=== PATIENT | female | born 1995 | race Caucasian/White ===

== ENCOUNTER 2025-02-27 09:24 | Emergency (ER) | payer SELFPAY ==
[2025-02-27] MEDS ORDERED: Iopamidol 370 76% 100 ML VIAL ONE (10:06)
[2025-02-27 10:52] LABS: #Basophils 0.03 10x3/uL (0.0-0.2); #Eosinophils 0.08 10x3/uL (0.0-0.7); #Monocytes 0.22 10x3/uL (0.11-0.59); #Neutrophils 3.15 10x3/uL (1.40-6.50); %Basophils 0.6 % (0.0-1.0); %Eosinophils 1.7 % (0.0-10.0); %Lymphocytes 25.4 % (21.0-51.0); %Monocytes 4.7 % (0.0-10.0); %Neutrophils 67.4 % (42.0-75.0); Hematocrit 36.9 % (36.0-47.0); Hemoglobin 12.3 g/dL (12.0-16.0); Mean Corpuscular Hemoglobin 28.8 pg (27.0-31.0); Mean Corpuscular Volume 86.4 fL (78.0-98.0); Platelet Count 214 10x3/uL (130-400); Red Blood Cell (RBC) Count 4.27 mill/uL (4.20-5.40); White Blood Cell (WBC) Count 4.68 10x3/uL (4.8-10.8)
[2025-02-27] MEDS ORDERED: Acetaminophen 500 MG TAB ONE (11:00)
[2025-02-27 11:13] LABS: ALT (SGPT) 10 U/L (Less than 34); AST (SGOT) 31 U/L (11-34); Albumin 4.4 g/dL (3.1-4.5); Alkaline Phosphatase 72 U/L (40-110); Anion Gap 15 mmol/L (10-20); BUN (Urea Nitrogen) 10 mg/dL (7.0-18.7); Bilirubin, Total 0.4 mg/dL (0.3-1.2); Calc. Creatinine Clearance 0 mL/min (70-130); Calcium 8.8 mg/dL (7.8-10.44); Carbon Dioxide 21 mmol/L (22-29); Chloride 107 mmol/L (98-107); Globulin 3.6 g/dL (2.4-3.5); Glucose 107 mg/dL (70-105); Magnesium 2.0 mg/dL (1.6-2.6); Potassium 4.5 mmol/L (3.5-5.1); Sodium 138 mmol/L (136-145)
[2025-02-27 11:16] LABS: Troponin I Less than 0.010 ng/mL (< 0.028)
[2025-02-27 12:22] LABS: CAUTI Indications for Culture Acute Hematuria; Glucose, Urine (Dipstick) Normal (Negative); Leukocyte 25 Leu/uL (Negative); Protein, Urine (Dipstick) Negative (Neg-Trace); RBC/HPF 0-3 HPF (0-3); Specific Gravity, Urine 1.021 (1.002-1.036)
[2025-02-27 12:24] LABS: Bacteria/HPF 1+ HPF (None Seen)
[2025-02-27 12:25] LABS: Pregnancy Test - Urine (BHCG) Negative (Negative); Pregu Control Background? CLEAR/WHITE (CLR/WHITE); Pregu Control Bar Appear? YES (CONTROL BAR); Urine Culture Reflex No No
[2025-02-27] MEDS ORDERED: diphenhydrAMINE 50 MG/ML VIAL ONE (13:55)
[2025-02-27] MEDS ORDERED: Famotidine/PF 20 mg/2ml Vial ONE (13:57)
== END 2025-02-27 16:40 | disposition home or self-care (01) ==
LOC: ERS 09:24
DX: R55 Syncope and collapse (principal); R82.71 Bacteriuria; I10 Essential (primary) hypertension; Z79.899 Other long term (current) drug therapy
CPT/HCPCS: 70450; 71275; 80053; 81001; 81025; 83605; 83735; 84484; 85025; 85379; 93005; 96361; 96374; 96375; J1200; J1308; J2919; Q0162; Q9967